=== PATIENT | male | born 1975 | race Two or more races ===

== ENCOUNTER 2022-05-06 19:38 | Emergency (ER) | payer SELFPAY ==
[~2022-05-06] VITALS: Ht 182.9 cm; Wt 72.6 kg
--- NOTE | 2022-05-06 19:50 | NUR ---
Dr. Mason at bedside for MSE.
[2022-05-06] MEDS ORDERED: LIDOCAINE HCL 2% 20 ML VIAL ONE (19:56)
[2022-05-06] MEDS ORDERED: OXYCODONE/APAP 5-325 MG TABLET ONE (19:59)
[2022-05-06] MEDS ORDERED: LIDOCAINE HCL 2% 20 ML VIAL IJ ONE (20:00)
[2022-05-06] MEDS ORDERED: OXYCODONE/APAP 5-325 MG TABLET PO ONE (20:00)
[2022-05-06] MEDS ORDERED: OXYC-128 PO (20:16)
--- NOTE | 2022-05-06 20:25 | NUR ---
Patient discharged to home in stable condition. Written and verbal after care instructions given. Patient verbalizes understanding of instructions. Stressed follow up or return to ER for worsening s/s. Patient out of ER with steady gait, no acute signs of distress, VSS, all belongings taken, instructed not to drive, to be driven home by friend via private vehicle.
[2022-05-06 20:28] VITALS: BP 121/76
== END 2022-05-06 20:28 | disposition home or self-care (01) ==
LOC: ER 19:41
DX: S51.811A Laceration without foreign body of right forearm, initial encounter (principal); S61.511A Laceration without foreign body of right wrist, initial encounter; W25.XXXA Contact with sharp glass, initial encounter; Y92.89 Other specified places as the place of occurrence of the external cause; F17.210 Nicotine dependence, cigarettes, uncomplicated
CPT/HCPCS: 99283; 12004; J3490; A4663

== ENCOUNTER 2022-05-27 01:34 | Emergency (ER) | payer SELFPAY ==
[~2022-05-27] VITALS: Ht 182.9 cm; Wt 72.6 kg
[~2022-05-27 01:34] MED LIST: OXYC-128 PO
--- NOTE | 2022-05-27 01:39 | NUR ---
Patient walked to ER with steady gait, NAD noted.
[2022-05-27] MEDS ORDERED: CLIN300C12 PO (01:51)
[2022-05-27] MEDS ORDERED: CLINDAMYCIN HCL 300 MG CAPSULE ONE (01:54)
[2022-05-27] MEDS ORDERED: CLINDAMYCIN HCL 150 MG CAPSULE PO ONE (02:00)
[2022-05-27 02:12] VITALS: BP 130/83
--- NOTE | 2022-05-27 02:12 | NUR ---
Patient discharged to home in stable condition. Written and verbal after care instructions given. Patient verbalizes understanding of instructions. Stressed follow up or return to ER for worsening s/s. Patient out of ER with steady gait, no acute signs of distress, VSS, all belongings taken.
== END 2022-05-27 02:20 | disposition home or self-care (01) ==
LOC: ER 02:17
DX: S51.811D Laceration without foreign body of right forearm, subsequent encounter (principal); L03.113 Cellulitis of right upper limb; W25.XXXD Contact with sharp glass, subsequent encounter; F17.210 Nicotine dependence, cigarettes, uncomplicated; Z91.19 Patient's noncompliance with other medical treatment and regimen
CPT/HCPCS: A4663